=== PATIENT | female | born 1975 | race Caucasian/White ===

== ENCOUNTER → 2017-01-13 12:17 | Outpatient (CLI) | payer MEDICAID | END | disposition home or self-care (01) | LOC: D.US 12:17 | DX: R79.89 Other specified abnormal findings of blood chemistry (principal) ==

== ENCOUNTER → 2017-01-21 08:32 | Outpatient (CLI) | payer MEDICAID | END | disposition home or self-care (01) | LOC: D.CT 08:32 | DX: R79.89 Other specified abnormal findings of blood chemistry (principal) ==

== ENCOUNTER → 2017-07-30 10:30 | Outpatient (CLI) | payer MEDICAID | END | disposition home or self-care (01) | LOC: D.US 10:30 | DX: R94.5 Abnormal results of liver function studies (principal) ==

== ENCOUNTER 2019-09-09 17:51 | Emergency (ER) | payer MEDICAID ==
[~2019-09-09] VITALS: Ht 167.6 cm; Wt 154.5 kg
[2019-09-09 18:13] VITALS: Ht 167.6 cm; Wt 154.5 kg
[2019-09-09] MEDS ORDERED: TRAZODONE HCL150 MG PO (18:14)
[2019-09-09] MEDS ORDERED: GLUCOPHAGE1000 MG PO (18:14)
[2019-09-09] MEDS ORDERED: ATIVAN1 MG PO (18:14)
[2019-09-09] MEDS ORDERED: LISINOPRIL10 MG PO (18:14)
[2019-09-09] MEDS ORDERED: OMEPRAZOLE40 MG PO (18:14)
[2019-09-09] MEDS ORDERED: IPRAT-ALBUT 0.5-3 ML UPD (18:15)
[2019-09-09] MEDS ORDERED: LEVOFLOXACIN500 MG PO (18:15)
[2019-09-09] MEDS ORDERED: DEXAMETHASONE0.75 MG PO (18:15)
[2019-09-09] MEDS ORDERED: TOZAL SOFTGEL1 EACH PO (18:16)
[2019-09-09] MEDS ORDERED: ALBUTEROL SULF8.5 GM (18:16)
[2019-09-09 19:27] LABS: BASOPHILS 0.3 % (0-2); EOSINOPHILS 2.4 % (0-7); HEMATOCRIT 42.5 % (36.0-48.0); HEMOGLOBIN 14.9 g/dL (12-16); IMMATURE GRANULOCYTES 0.5 % (0-5); LYMPHOCYTES 26.2 % (15-50); MCH 32.6 pg (26.0-34.0); MCHC 35.1 g/dL (31.0-37.0); MEAN PLATELET VOLUME 8.1 fL (7.4-10.4); MONOCYTES 4.6 % (2-11); PLATELET COUNT 340 10x3/uL (130-400); RBC 4.57 10x6/uL (4.00-5.40); RDW 12.4 % (11.5-14.5); WBC 15.1 10x3/uL (4.8-10.8)
[2019-09-09 19:36] LABS: CALC OSMOLALITY 279 mosm/kg (275-300); CALCIUM 9.3 mg/dL (8.5-10.1); CARBON DIOXIDE 25.2 mmol/L (21.0-32.0); CHLORIDE - SERUM 102 mmol/L (98-107); CREATININE - SERUM 0.7 mg/dL (0.6-1.3); GLUCOSE 167 mg/dL (74-106); POTASSIUM - SERUM 4.2 mmol/L (3.5-5.1); SODIUM 138 mmol/L (136-145); UREA NITROGEN 12 mg/dL (7-18); eGFR NON AFRICAN AMERICAN > 90 mL/min (90-120)
[2019-09-09 19:42] LABS: ALBUMIN 3.4 g/dL (3.4-5.0); ALKALINE PHOSPHATASE 53 U/L (46-116); ALT (SGPT) 40 U/L (10-68); BILIRUBIN - TOTAL 0.46 mg/dL (0.2-1.3); MAGNESIUM - SERUM 1.6 mg/dL (1.8-2.4); PROTEIN - SERUM 7.4 g/dL (6.4-8.2)
[2019-09-09 22:02] LABS: APPEARANCE CLEAR (CLEAR); BILIRUBIN NEGATIVE (NEGATIVE); COLOR YELLOW (YELLOW); GLUCOSE NEGATIVE (NEGATIVE); KETONE MODERATE mg/dL (NEGATIVE); NITRITE NEGATIVE (NEGATIVE); PROTEIN NEGATIVE (NEGATIVE); UROBILINOGEN NORMAL (NORMAL)
[2019-09-09] MEDS ORDERED: PROBIOTIC1 EAC1 PO (22:02)
[2019-09-09 22:03] LABS: BACTERIA FEW /hpf (NEGATIVE); RED CELLS - URINE 0-5 /hpf (0-5); UDS - AMPHET NEGATIVE QUAL (NEGATIVE); UDS - BARB NEGATIVE QUAL (NEGATIVE); UDS - BENZO NEGATIVE QUAL (NEGATIVE); UDS - COCAINE NEGATIVE QUAL (NEGATIVE); UDS - OPIATE NEGATIVE QUAL (NEGATIVE); UDS - PCP NEGATIVE QUAL (NEGATIVE); UDS - THC NEGATIVE QUAL (NEGATIVE); WHITE CELLS - URINE 0-5 /hpf (NEGATIVE)
[2019-09-09 22:34] VITALS: BP 145/98
== END 2019-09-09 22:42 | disposition home or self-care (01) ==
LOC: D.ER 17:51
PROVIDERS: Family Medicine
DX: T50.915A Adverse effect of multiple unspecified drugs, medicaments and biological substances, initial encounter (principal); Y92.89 Other specified places as the place of occurrence of the external cause; F41.9 Anxiety disorder, unspecified; R19.7 Diarrhea, unspecified; E11.9 Type 2 diabetes mellitus without complications; I10 Essential (primary) hypertension; Z79.84 Long term (current) use of oral hypoglycemic drugs